=== PATIENT | male | born 1945 | race Caucasian/White ===

== ENCOUNTER 2017-01-27 11:28 | Emergency (ER) | payer OTHER ==
[2017-01-27 11:44] VITALS: TEMP 97.3; BMI 23.7
[2017-01-27] MEDS ORDERED: ACETAMINOPHEN 325 MG TABLET (FP) PO ONE (11:57)
[2017-01-27] MEDS ORDERED: OXYCODONE/APAP 5/325MG COMBO TABLET PO ONE (11:57)
[2017-01-27] MEDS ORDERED: ACETAMINOPHEN 325 MG TABLET (FP) ONE (11:58)
[2017-01-27] MEDS ORDERED: OXYCODONE/APAP 5/325MG COMBO TABLET ONE (11:59)
--- NOTE | 2017-01-27 12:48 | PDOC ---
History of Present Illness - General Chief Complaint: Injury Stated Complaint: INJURY Time Seen by Provider: 01/27/17 11:47 History Source: Patient Exam Limitations: No Limitations - History of Present Illness Initial Comments: 01/27/17 12:56 Patient status post mechanical fall. Patient states was walking when he had slipped causing him to put out his left hand landing on his left wrist. Patient states had fractured the left wrist approximately 20 years ago but does not remember the orthopedist he was seen by. Patient currently denies sensory changes distal of the injury, elbow pain, shoulder pain, headache or dizziness. Occurred: reports: just prior to arrival Severity: reports: moderate Pain Location: reports: upper extremity Method of Injury: Yes: fall Modifying Factors: improves with: None Loss of Consciousness: no loss of consciousness Associated Symptoms (Fall): denies symptoms Past History - Past Medical History Allergies/Adverse Reactions: Allergies Allergy/AdvReac Type Severity Reaction Status Date / Time No Known Allergies Allergy Verified 01/27/17 11:44 Home Medications: Ambulatory Orders Oxycodone HCl/Acetaminophen [Percocet 5-325 mg Tablet] 1 - 2 tab PO Q6H PRN #12 tab MDD 4 01/27/17 Other medical history: denies - Psycho/Social/Smoking Cessation Hx Anxiety: No Suicidal Ideation: No Smoking History: Never smoked Have you smoked in the past 12 months: No Information on smoking cessation initiated: No Hx Alcohol Use: No Drug/Substance Use Hx: No Substance Use Type: None Patient Lives Alone: No Review of Systems - Review of Systems Able to Perform ROS?: Yes Respiratory: No: Symptoms reported Cardiac (ROS): No: Symptoms Reported ABD/GI: No: Nausea Musculoskeletal: Yes: Joint Pain (left wrist) Integumentary: No: Symptoms Reported Neurological: No: Symptoms reported Endocrine: No: Symptoms Reported Hematologic/Lymphatic: No: Symptoms Reported *Physical Exam - Vital Signs Last Vital Signs Temp Pulse Resp BP Pulse Ox 97.3 F L 54 L 13 135/74 100 01/27/17 11:37 01/27/17 11:37 01/27/17 11:37 01/27/17 11:37 01/27/17 11:37 - Physical Exam General Appearance: Yes: Nourished, Appropriately Dressed. No: Apparent Distress HEENT: positive: EOMI, CHANEL. negative: Pale Conjunctivae Neck: negative: Tender, Supple, Decreased range of motion Respiratory/Chest: positive: Lungs Clear, Normal Breath Sounds. negative: Respiratory Distress, Accessory Muscle Use Cardiovascular: positive: Regular Rhythm, Regular Rate. negative: Murmur Extremity: positive: Normal Capillary Refill. negative: Normal Inspection ( noted deformity to left distal radius and ulna. ) Integumentary: positive: Normal Color, Warm, Moist. negative: Swelling, Ecchymosis Neurologic: positive: Motor Strength 5/5 (left fingers x 5) Procedures - Splinting Splint Location: Left: Forearm Pre-Proc Neuro Vasc Exam: normal Hand-Made Type: orthoglass Splint Type: Yes: Sugar [place] Bandage: 3" Sling: Yes Good repositioning: Yes ED Treatment Course - RADIOLOGY Radiology Studies Ordered: Category Date Time Status FOREARM- LEFT [RAD] Stat Radiology 01/27/17 12:07 Taken WRIST W/HAND-LEFT* [RAD] Stat Radiology 01/27/17 11:57 Taken - Medications Given in the ED: ED Medications Discontinued Medications Generic Name Dose Route Start Last Admin Trade Name Davidq PRN Reason Stop Dose Admin Acetaminophen 650 mg 01/27/17 11:57 01/27/17 12:13 Tylenol - PO 01/27/17 11:58 650 mg ONCE ONE Administration Oxycodone/Acetaminophen 1 combo 01/27/17 11:57 01/27/17 12:13 Percocet 5/325 - PO 01/27/17 11:58 1 combo ONCE ONE Administration Medical Decision Making - Medical Decision Making 01/27/17 12:07 Patient status post mechanical fall now with left wrist deformity. Patient concerning for distal radial and ulnar fracture. Patient has no sensory changes distal patient ordered for a left wrist and forearm x-ray. patient also ordered for Percocet 01/27/17 12:59 X-ray shows distal radius and ulnar fracture. Patient will be placed in a splint with sling and given referral to . *DC/Admit/Observation/Transfer Diagnosis at time of Disposition: Radius and ulna distal fracture Qualifiers: Encounter type: initial encounter Fracture type: closed Laterality: left Qualified Code(s): S52.502A - Unspecified fracture of the lower end of left radius, initial encounter for closed fracture - Discharge Dispostion Disposition: HOME Condition at time of disposition: Good - Prescriptions Prescriptions: Oxycodone HCl/Acetaminophen [Percocet 5-325 mg Tablet] 1 - 2 tab PO Q6H PRN #12 tab MDD 4 PRN Reason: Pain - Referrals Referrals: Lorie Jean [Primary Care Provider] - Favian High MD [Staff Physician] - - Patient Instructions Printed Discharge Instructions: DI for Wrist Fracture Additional Instructions: Please apply ice to the affected area for the next 2 days as much as he can tolerate and take Percocet as needed for discomfort. Please also call tomorrow to make an appointment with the orthopedist. Use sling when walking. otherwise he may remove at night and elevate the extremity
[2017-01-27] MEDS ORDERED: morphine CARPU-JECT 2 MG/1 ML DISP.SYRIN SQ ONE (13:27)
[2017-01-27] MEDS ORDERED: morphine CARPU-JECT 4 MG/1 ML DISP.SYRIN ONE (13:40)
[2017-01-27 13:47] VITALS: BP 125/65; PULSE 57
== END 2017-01-27 13:47 | disposition home or self-care (01) ==
LOC: JER 11:28
PROC: 2W39X1Z Immobilization of Left Upper Extremity using Splint (ICD-10-PCS; principal; 2017-01-27)
DX: S52.592A Other fractures of lower end of left radius, initial encounter for closed fracture (principal); S52.612A Displaced fracture of left ulna styloid process, initial encounter for closed fracture; W01.0XXA Fall on same level from slipping, tripping and stumbling without subsequent striking against object, initial encounter; Y93.89 Activity, other specified; Y92.59 Other trade areas as the place of occurrence of the external cause; Y99.8 Other external cause status
CPT/HCPCS: 29125; 73090-TC-LT; 73110-TC-LT; 73130-TC-LT; 99284-25